=== PATIENT | male | born 2000 | race Two or more races ===

== ENCOUNTER 2020-02-28 15:49 | Emergency (ER) | payer MEDICAID ==
[~2020-02-28] VITALS: Ht 180.3 cm; Wt 68.0 kg
[2020-02-28] MEDS ORDERED: ACETAMINOPHEN/CODEINE#3 (300/30mg) TAB PO ONE (16:15)
[2020-02-28 16:16] VITALS: BP 105/58
== END 2020-02-28 17:15 | disposition home or self-care (01) ==
LOC: ER 15:49
DX: S62.357A Nondisplaced fracture of shaft of fifth metacarpal bone, left hand, initial encounter for closed fracture (principal); F17.210 Nicotine dependence, cigarettes, uncomplicated; X58.XXXA Exposure to other specified factors, initial encounter; Y93.89 Activity, other specified; Y92.89 Other specified places as the place of occurrence of the external cause; Y99.8 Other external cause status
CPT/HCPCS: 29125